=== PATIENT | male | born 1960 | race Caucasian/White ===

== ENCOUNTER 2024-01-19 10:32 | Inpatient (IN) | payer OTHER ==
[2024-01-19 11:03] VITALS: BMI 18.6
[2024-01-19] MEDS ORDERED: MAGNESIUM HYDROX 2400MG/30ML ORAL SUSPENSION 30 ML CUP PO PRN (12:02)
[2024-01-19] MEDS ORDERED: NICOTINE POLACRILEX 2 MG GUM BUC PRN (12:02)
[2024-01-19] MEDS ORDERED: NALOXONE (NARCAN) HCL 4 MG/0.1 ML SPRAY NS PRN (12:02)
[2024-01-19] MEDS ORDERED: ONDANSETRON *ODT* 4 MG TABLET SL PRN (12:02)
[2024-01-19] MEDS ORDERED: P-EPHED 60MG/TRIPROLIDI 2.5MG TABLET PO PRN (12:02)
[2024-01-19] MEDS ORDERED: guaiFENesin 600 MG TABLET.ER (FP) PO PRN (12:02)
[2024-01-19] MEDS ORDERED: IBUPROFEN 600 MG TABLET (FP) PO PRN (12:02)
[2024-01-19] MEDS ORDERED: BENZOCAINE/MENTHOL (CHLORASEPTIC ) LOZENGE MM PRN (12:02)
[2024-01-19] MEDS ORDERED: NICOTINE POLACRILEX 2 MG LOZENGE BC PRN (12:02)
[2024-01-19] MEDS ORDERED: MAG HYDROX/AL HYDROX/SIMETH 30 ML UNIT-DOSE CUP PO PRN (12:02)
[2024-01-19] MEDS ORDERED: NALOXONE HCL 0.4 MG/ML VIAL IM PRN (12:02)
[2024-01-19] MEDS ORDERED: LOPERAMIDE HCL 2 MG CAPSULE PO PRN (12:02)
[2024-01-19] MEDS ORDERED: POLYETHYLENE GLYCOL (HEALTHYLAX) 3350 17 GM PACKET PO PRN (12:02)
[2024-01-19] MEDS ORDERED: DICYCLOMINE HCL 10 MG CAPSULE PO PRN (12:02)
[2024-01-19] MEDS ORDERED: BENZONATATE 200 MG CAPSULE PO PRN (12:02)
[2024-01-19] MEDS ORDERED: ACETAMINOPHEN 325 MG TABLET (FP) PO PRN (12:02)
[2024-01-19] MEDS ORDERED: BISMUTH SUBSALICYLATE 524 MG/30 ML PO PRN (12:02)
[2024-01-19] MEDS ORDERED: IBUPROFEN 400 MG TABLET (FP) PO PRN (12:02)
[2024-01-19] MEDS ORDERED: cloNIDine HCL 0.1 MG TABLET PO PRN (15:45)
[2024-01-19] MEDS: METHOCARBAMOL 500 MG TABLET PO PRN (18:00)
[2024-01-19] MEDS: methaDONE HCL 10 MG TABLET (FOR DETOX USE ONLY) PO ONE ×2 (18:01→18:23)
[2024-01-19] MEDS: THIAMINE 100 MG TABLET PO SCH (23:21)
[2024-01-19] MEDS: MELATONIN 5 MG TABLETS PO SCH (23:21)
[2024-01-19] MEDS: hydrOXYzine PAMOATE 25 MG CAPSULE (FP) PO PRN (23:21)
[2024-01-20] MEDS: PRENATAL VITAMINS W/ FOLIC ACID TABLET (FP) PO SCH (10:17)
[2024-01-20] MEDS: clonazePAM 0.5 MG ODT TABLETS SL ONE (12:29)
[2024-01-20] MEDS: QUEtiapine FUMARATE 200 MG TABLET PO SCH (22:42)
[2024-01-20] MEDS: clonazePAM 1 MG ODT TABLETS SL SCH (22:42)
[2024-01-21] MEDS: clonazePAM 0.5 MG ODT TABLETS SL SCH (06:31)
[2024-01-21] MEDS: methaDONE HCL 10 MG TABLET (FOR DETOX USE ONLY) PO ONE (10:16)
[2024-01-22] MEDS: guaiFENesin 600 MG TABLET.ER (FP) PO PRN (19:18)
[2024-01-23] MEDS: methaDONE HCL 10 MG TABLET (FOR DETOX USE ONLY) PO ONE (09:26)
[2024-01-24 08:47] VITALS: BP 140/82; PULSE 83; RESP 16; TEMP 96.8
== END 2024-01-24 09:21 | disposition home or self-care (01) | DRG 773 ==
LOC: YASAS 10:32 → Y3N 13:51
PROVIDERS: ADMIT Allergy & Immunology; ATTEND Surgery
PROC: HZ2ZZZZ Detoxification Services for Substance Abuse Treatment (ICD-10-PCS; principal; 2024-01-19)
DX: F11.23 Opioid dependence with withdrawal (principal); F14.20 Cocaine dependence, uncomplicated; F12.20 Cannabis dependence, uncomplicated; F17.210 Nicotine dependence, cigarettes, uncomplicated; F19.282 Other psychoactive substance dependence with psychoactive substance-induced sleep disorder; F19.280 Other psychoactive substance dependence with psychoactive substance-induced anxiety disorder; F19.24 Other psychoactive substance dependence with psychoactive substance-induced mood disorder
CPT/HCPCS: 80305; 93005; 93010